=== PATIENT | male | born 1940 ===

== ENCOUNTER → 2018-01-21 | Outpatient (CLI) | payer BC, MEDICARE | END | disposition home or self-care (01) | LOC: OIH 15:10 | PROVIDERS: ATTEND Internal Medicine | DX: J44.9 Chronic obstructive pulmonary disease, unspecified (principal); M47.895 Other spondylosis, thoracolumbar region | CPT/HCPCS: 71046 ==

== ENCOUNTER 2018-07-27 05:30 | Day surgery (SDC) | payer BC, MEDICARE ==
[2018-07-27] VITALS (8 sets, daily range): BP systolic 104–137; BP diastolic 38–73
[~2018-07-27] VITALS: Ht 172.7 cm; Wt 102.5 kg
[2018-07-27] MEDS ORDERED: SODIUM CHLORIDE 0.9% 1000ML 1,000 ML IV ONE (05:40)
[2018-07-27] MEDS ORDERED: LOSA1TAB2 PO (06:24)
[2018-07-27] MEDS ORDERED: METF-444 PO (06:24)
[2018-07-27] MEDS ORDERED: GLIM4TAB3 PO (06:24)
[2018-07-27] MEDS ORDERED: AMLO10TA6 PO (06:24)
[2018-07-27] MEDS ORDERED: BUDE0.255 IH (06:24)
[2018-07-27] MEDS ORDERED: TAMS0.4C32 PO (06:24)
[2018-07-27] MEDS ORDERED: ALBU8.5H8 IH (06:24)
[2018-07-27] MEDS ORDERED: PROPOFOL 10 MG/ML 20ML VIAL IV ONE (06:30)
[2018-07-27] MEDS ORDERED: LIDOCAINE HCL-MPF 2% 5ML VIAL ONE (06:31)
[2018-07-27] MEDS ORDERED: PHENYLEPHRINE HCL 10 MG/ML 1ML VIAL IV ONE (06:46)
== END 2018-07-27 07:45 | disposition home or self-care (01) ==
LOC: DAH 05:30 → ENDO 05:30
PROVIDERS: ATTEND Internal Medicine
DX: Z12.11 Encounter for screening for malignant neoplasm of colon (principal); K63.5 Polyp of colon; K57.30 Diverticulosis of large intestine without perforation or abscess without bleeding; J45.909 Unspecified asthma, uncomplicated; E11.9 Type 2 diabetes mellitus without complications; I10 Essential (primary) hypertension; J44.9 Chronic obstructive pulmonary disease, unspecified; F15.90 Other stimulant use, unspecified, uncomplicated; Z87.891 Personal history of nicotine dependence; Z79.84 Long term (current) use of oral hypoglycemic drugs; Z79.899 Other long term (current) drug therapy; Z98.890 Other specified postprocedural states; Z95.0 Presence of cardiac pacemaker
CPT/HCPCS: 45380; 82948; 88305; J2370; J2704; J3490; J7030

== ENCOUNTER → 2019-03-01 | Outpatient (CLI) | payer BC, MEDICARE ==
[~2019-03-01] MED LIST: ALBU8.5H8 IH; AMLO10TA7 PO; BUDE0.255 IH; GLIM4TAB3 PO; LOSA1TAB2 PO; METF-444 PO; TAMS0.4C32 PO
== END | disposition home or self-care (01) ==
LOC: OIH 13:29
PROVIDERS: ATTEND Internal Medicine
DX: J44.1 Chronic obstructive pulmonary disease with (acute) exacerbation (principal); M47.815 Spondylosis without myelopathy or radiculopathy, thoracolumbar region; J90 Pleural effusion, not elsewhere classified; N28.1 Cyst of kidney, acquired; N20.0 Calculus of kidney
CPT/HCPCS: 71046; 71250